=== PATIENT | male | born 1950 | race Caucasian/White ===

== ENCOUNTER → 2019-02-14 09:08 | Outpatient (CLI) | payer MEDICARE, BC, SELFPAY ==
--- NOTE | 2019-02-14 09:14 | US_ITS ---
STUDY: SCROTUM ULTRASOUND REASON FOR EXAM: Male, 68 years old. Palpable mass. TECHNIQUE: Ultrasound evaluation of the scrotum was performed with color Doppler and static mai-scale imaging. COMPARISON: None. FINDINGS: RIGHT TESTICLE INTRATESTICULAR: There is a normal size of the right testicle. The right testicle measures 3.6 x 2.7 x 2.5 cm. There is a homogenous echotexture. There is normal arterial and normal venous vascularity. There is no demonstrated right testicular mass or cyst. EXTRATESTICULAR: The epididymis is normal in size. The epididymis head measures 1.2 cm. There is normal vascularity of the epididymis. There is no demonstrated epididymal cystic structure. There is a large hydrocele. There is no demonstrated varicocele. There is no demonstrated extratesticular mass or cyst. LEFT TESTICLE INTRATESTICULAR: There is a normal size of the left testicle. The left testicle measures 4.0 x 2.8 x 2.6 cm. There is a homogenous echotexture. There is normal arterial and normal venous vascularity. There is no demonstrated left testicular mass or cyst. EXTRATESTICULAR: The epididymis is normal in size. The epididymis head measures 1.0 cm. There is normal vascularity of the epididymis. There is no demonstrated epididymal cystic structure. There is a small hydrocele. There is no demonstrated varicocele. There is no demonstrated extratesticular mass or cyst. US/Testicular with Arterial Flow IMPRESSION: There is no intratesticular mass. There is normal blood flow. Right larger than left hydroceles. Electronically Signed: Ashok Mehta MD at 17:08 EDT , Service support ,
== END ==
DX: N50.9 Disorder of male genital organs, unspecified (principal); N43.3 Hydrocele, unspecified; N50.82 Scrotal pain
CPT/HCPCS: 76870; 93976

== ENCOUNTER → 2020-12-03 08:10 | Outpatient (CLI) | payer MEDICARE, BC, SELFPAY ==
[2020-12-03 10:31] LABS: Vitamin D,25 Hydroxy 41.6 ng/mL
[2020-12-03 10:44] LABS: Anion Gap 6 (5-15); BUN 13 mg/dL (7-18); BUN/Creat Ratio 13.9 RATIO (10-20); Calcium,Total 8.8 mg/dL (8.5-10.1); Chloride 108 mmol/L (98-107); Cholesterol 154 mg/dL (200); Creatinine, Serum 0.93 mg/dL (0.70-1.30); EST Glomerular Filtration Rate 86 mL/min (>60); Est Glom Filt Rate - Afr Amer 104 mL/min (>60); Glucose 92 mg/dL (74-106); High Density Lipoprotein 33 mg/dL; Potassium 3.9 mmol/L (3.5-5.1); Sodium Level 139 mmol/L (136-145); Triglycerides 91 mg/dL; Very Low Density Lipoprotein 18 mg/dL (5-40)
== END ==
LOC: MFPLAB 08:12
PROVIDERS: PCP Family Medicine; Referring Provider Family Medicine; Visit Provider Family Medicine
DX: Z00.00 Encounter for general adult medical examination without abnormal findings (principal); Z12.5 Encounter for screening for malignant neoplasm of prostate
CPT/HCPCS: 36415; 80048; 80061; 82306; 84153; G0103

== ENCOUNTER → 2020-12-19 12:05 | Outpatient (CLI) | payer MEDICARE, BC, SELFPAY ==
--- NOTE | 2020-12-19 12:23 | EKG12_ITS ---
Test Reason : PREOP Blood Pressure : / mmHG Vent. Rate : 055 BPM Atrial Rate : 055 BPM P-R Int : 206 ms QRS Dur : 086 ms QT Int : 402 ms P-R-T Axes : 024 -47 045 degrees QTc Int : 384 ms Sinus bradycardia Left anterior fascicular block Poor R wave progression Abnormal ECG Confirmed by HU GALLEGOS, FELIPE ([id number]), food editor GINA LOYA ([id number]) on 12/20/2020 10:41:08 AM Referred By: Manjinder Conley Confirmed By:FELIPE LUI MD
[2020-12-19 12:35] LABS: Hematocrit 46.6 % (40-54); Hemoglobin 15.8 g/dL (13.0-16.5); Mean Corp Hgb Conc 33.9 g/dL (32-36); Mean Corpuscular Hgb 30.4 pg (27.0-32.0); Mean Corpuscular Volume 89.6 fL (80-94); Mean Platelet Vol. 8.9 fl (6.2-12.0); Platelet Count 215 K/mm3 (150-450); RBC Distribution Width CV 12.6 % (11.6-14.6); RBC Distribution Width SD 41.3 fl (35.1-43.9); White Blood Count 5.4 K/mm3 (4.4-11.0)
[2020-12-19 12:57] LABS: Anion Gap 8 (5-15); BUN 12 mg/dL (7-18); BUN/Creat Ratio 13.1 RATIO (10-20); Calcium,Total 9.2 mg/dL (8.5-10.1); Chloride 107 mmol/L (98-107); Creatinine, Serum 0.92 mg/dL (0.70-1.30); EST Glomerular Filtration Rate 87 mL/min (>60); Est Glom Filt Rate - Afr Amer 106 mL/min (>60); Glucose 107 mg/dL (74-106); Sodium Level 141 mmol/L (136-145)
== END ==
PROVIDERS: PCP Family Medicine; Referring Provider Urology; Visit Provider Urology
DX: Z01.812 Encounter for preprocedural laboratory examination (principal); Z01.810 Encounter for preprocedural cardiovascular examination
CPT/HCPCS: 36415; 80048; 85027; 93005

== ENCOUNTER → 2021-12-23 | Outpatient (CLI) | payer MEDICARE, BC, SELFPAY ==
[2021-12-23 10:06] LABS: Anion Gap 4 (5-15); BUN 15 mg/dL (7-18); BUN/Creat Ratio 14.9 RATIO (10-20); Calcium,Total 9.3 mg/dL (8.5-10.1); Chloride 107 mmol/L (98-107); Creatinine, Serum 1.01 mg/dL (0.70-1.30); EST Glomerular Filtration Rate 78 mL/min (>60); Est Glom Filt Rate - Afr Amer 94 mL/min (>60); Glucose 102 mg/dL (74-106); Potassium 4.6 mmol/L (3.5-5.1); Sodium Level 141 mmol/L (136-145)
== END | disposition home or self-care (01) ==
LOC: MFPLAB 08:07
PROVIDERS: PCP Family Medicine; Visit Provider Family Medicine
DX: Z00.00 Encounter for general adult medical examination without abnormal findings (principal)
CPT/HCPCS: 36415; 80048

== ENCOUNTER → 2022-12-31 | Outpatient (CLI) | payer MEDICARE, BC, SELFPAY ==
[2022-12-31 10:45] LABS: Anion Gap 4 (5-15); BUN 15 mg/dL (7-18); BUN/Creat Ratio 14.4 RATIO (10-20); Calcium,Total 9.3 mg/dL (8.5-10.1); Chloride 108 mmol/L (98-107); Cholesterol 184 mg/dL (200); Creatinine, Serum 1.04 mg/dL (0.70-1.30); EST Glomerular Filtration Rate 75 mL/min (>60); Est Glom Filt Rate - Afr Amer 91 mL/min (>60); Glucose 96 mg/dL (74-106); High Density Lipoprotein 34 mg/dL; PSA,Total - Annual Screen 0.87 ng/mL (0.00-4.00); Potassium 4.2 mmol/L (3.5-5.1); Sodium Level 139 mmol/L (136-145); Triglycerides 114 mg/dL; Very Low Density Lipoprotein 23 mg/dL (5-40)
== END | disposition home or self-care (01) ==
LOC: MFPLAB 08:24
PROVIDERS: PCP Family Medicine; Visit Provider Family Medicine
DX: Z00.00 Encounter for general adult medical examination without abnormal findings (principal); Z12.5 Encounter for screening for malignant neoplasm of prostate
CPT/HCPCS: 36415; 80048; 80061; 84153; G0103

== ENCOUNTER 2023-03-18 06:06 | Day surgery (SDC) | payer MEDICARE, BC, SELFPAY ==
[2023-03-18 06:28] VITALS: BP 135/77; PULSE 74; RESP 20; TEMP 36.2; O2SAT 99; BMI 29.9
[2023-03-18] MEDS: Lactated Ringers 1,000 ML 15 ML IV (06:32)
--- NOTE | 2023-03-18 07:30 | COLBX_PTH ---
PATIENT: KALE SHELDON LOC: EN U#:[id number] AGE/SX: 72/M ROOM: RE03/18/[address]: Dr. Marcus Watters MD : 1950 BED: DIS: 03/18/2023 SPEC #: [id number] RECD: 03/18/23 11:34 STATUS: EDMOND RIO #: [id number] SOLOMON: 03/18/23 07:[address]: Marcus Watters DEPT: SURGICAL PATHOLOGY RECD BY: Sandrine Acharya ENTERED: 03/18/23 12:08 SP TYPE: COLON BX OTHR DR: Dr. Medhat Julian MD Tissues: A - COLON BIOPSY B - Cecum, NOS C - Sigmoid colon biopsy Procedures: Surgery Specimen Level IV HEADER OPERATION: Colonoscopy - open access PRE-OP DIAGNOSIS: Screening TISSUE SUBMITTED: A - Appendiceal orifice polyp biopsy, B - Cecal polyp biopsy, C - Sigmoid polyp biopsy MICROSCOPIC DIAGNOSIS A. Appendiceal orifice polyp, biopsy: Tubular adenoma. B. Cecal polyp, biopsy: Tubular adenoma. C. Sigmoid polyp, biopsy: Hyperplastic polyp. HONORIO:curt 03/19/2023 MICROSCOPIC DESCRIPTION Slides are reviewed. GROSS DESCRIPTION A - Received in fixative is one container labeled with the patient's name and designated appendiceal orifice polyp biopsy. The specimen consists of multiple irregular fragments of light acosta soft tissue that in aggregate measure 1.0 x 0.3 x 0.1 cm. The specimen is totally submitted in one cassette. B - Received in fixative is one container labeled with the patient's name and designated cecal polyp biopsy. The specimen consists of one irregular fragment of light acosta soft tissue that measures 0.3 x 0.3 x 0.1 cm. The specimen is totally submitted in one cassette. C - Received in fixative is one container labeled with the patient's name and designated sigmoid polyp biopsy. The specimen consists of one irregular fragment of light acosta soft tissue that measures 0.3 x 0.3 x 0.1 cm. The specimen is totally submitted in one cassette. / HONORIO:curt 03/18/2023 TC:1 CPT: 79223 x3
--- NOTE | 2023-03-18 07:31 | HP.PCM_ITS ---
[facility] - General General Date of Service: 03/18/23 Chief Complaint: Screening colonoscopy HPI Narrative KALE SHELDON, is a 72 M who presents for screening colonoscopy. He confirms his preappointment questionnaire that he has not had a prior colonoscopy but also not experienced any change in his bowel habits-and particularly denies any notice of blood. He states that it has taken him a while to get to this point because he never understood why you should look for trouble, but states that ultimately was convinced by his primary care provider. He also denies any family history of GI illness to include diverticulitis, inflammatory bowel disease, or colon cancer. Lastly he confirms that her prep was completed successfully and that her output is now predominantly clear with only mild sediment. [facility] Medical History (Updated 03/16/23 @ 15:44 by Yennifer Hart) Non-smoker Wears glasses Home Medications multivitamin (Daily Multi-Vitamin tablet) 1 tab PO DAILY 03/16/23 [History Last Taken 03/15/23] Allergy/AdvReac Type Severity Reaction Status Date / Time Bandaids AdvReac Skin Uncoded 02/18/23 09:12 irritation Family History (Updated 02/18/23 @ 09:10 by Barbara Chavez) Brother Cancer Sister Breast cancer Surgical History Hx of vasectomy Social History (Updated 02/18/23 @ 09:11 by Barbara Chavez) household members: spouse current occupational status: retired Smoking Status: Never smoker alcohol intake: never Past Medical/Surgical History Planned Operation Planned Operative Procedure/s: CSCOPE Previous Hospitalizations/Surgeries HX Hospitalizations: No Any Problems With Anesthesia: No You/Your Family Experience Fever (Hyperthermia) With Anes: No Cholinesterase deficiency: No Cardiovascular Hx Hypertension: No Respiratory Hx Sleep Apnea: No Hx Respiratory Tract Infection/Cold (presently): No Do You Snore Loudly (louder than talking or can be heard): Yes Do You Often Feel Tired/ Fatigued/ Sleepy Dring Daytime?: No Has Anyone Observed You Stop Breathing During Sleep?: No Result (for STOP score): Negative Smoking Status: Never smoker Neurological Does patient have nerve stimulator: No Miscellaneous Recent Exposure to Contagious Disease: No Allergies Bandaids Adverse Reaction (Uncoded 02/18/23 09:12) Skin irritation Discharge Is Pt Admitted From a Skilled Nursing, or a Long-Term: No After D/C, Where Do you Plan to Go: Return Home Vital Signs Vital Signs Vital Signs: 03/18/23 06:27 03/18/23 06:28 Temperature 97.2 F L Temperature Source Temporal Pulse Rate 74 Respiratory Rate 20 H Respiratory Pattern Normal Blood Pressure 135/77 H Blood Pressure Mean 96 Blood Pressure Source Monitor Blood Pressure Position Semi-Fowlers Blood Pressure Location Left Arm Pulse Ox 99 Oxygen Delivery Method Room Air Weight Weight: 209 lb Body Mass Index (BMI) 29.9 Physical Exam Const alert, oriented x3 and no apparent distress General Appearance: cooperative and comfortable Resp normal respiratory effort GI GI Narrative: Overweight, hirsute, no scars, nondistended, soft, nontender to palpation x 4 quadrants Assessment & Plan Assessment/Plan (1) Encounter for screening for malignant neoplasm of colon: PLAN: This is a 72-year-old male who presents for screening colonoscopy and appears to be at average risk for colon cancer per his history (he does note that there are number of cancers in first-degree relatives including pancreas, breast, melanoma??). There is no prior history of colonoscopy for Mr. Sheldon. He confirms that he completed a prep in anticipation of today's procedure. He recently accompanied his to her first colonoscopy as well and therefore they do not have many questions. I did cover with him the expected lead for any biopsy/ pathology results. Will proceed to the endoscopy suite for planned open access screening colonoscopy as scheduled. PLAN: Plan Proceed for open access screening colonoscopy Surgery Risks - Colonoscopy Risks Include but are not Limited To: Risks include but are not limited to: Bleeding, perforation requiring further surgery, inability to complete colonoscopy requiring barium enema.
[2023-03-18 08:26] VITALS: BP 135/77; BP 94/55; PULSE 70; RESP 18; TEMP 36.2; O2SAT 94
--- NOTE | 2023-03-18 08:28 | OP.COLON_ITS ---
Patient Name: Vladimir Forman Procedure Date: 03/18/2023 7:12 AM Date of : 1950 Age: 72 Procedure: Colonoscopy Indications: Screening for colorectal malignant neoplasm Providers: Marcus Watters MD Referring MD: Medhat Julian MD Medicines: See the Anesthesia note for documentation of the administered medications Patient Profile: Last Colonoscopy: none. The patient's first colonoscopy is today. Complications: No immediate complications. Estimated blood loss: Minimal. Procedure: Pre-Anesthesia Assessment: - The heart rate, respiratory rate, oxygen saturations, blood pressure, adequacy of pulmonary ventilation, and response to care were monitored throughout the procedure. After I obtained informed consent, the scope was passed under direct vision. Throughout the procedure, the patient's blood pressure, pulse, and oxygen saturations were monitored continuously. The Colonoscope was introduced through the anus and advanced to the cecum, identified by its appearance. The colonoscopy was performed without difficulty. The patient tolerated the procedure well. The quality of the bowel preparation was adequate to identify polyps 6 mm and larger in size. Scope In: 7:42:59 AM Scope Withdrawal Time 0 hours 30 minutes 47 seconds Scope Out: 8:19:01 AM Total Procedure Duration Time 0 hours 36 minutes 2 seconds Findings: Three semi-sessile polyps were found in the distal sigmoid colon, cecum and appendiceal orifice. The polyps were 3 to 5 mm in size. These polyps were removed with a piecemeal technique using a cold biopsy forceps. Resection and retrieval were complete. Estimated blood loss was minimal. Many small and large-mouthed diverticula were found in the sigmoid colon. No biopsies or other specimens were collected for this exam. The exam was otherwise without abnormality on direct and retroflexion views. Impression: - Three 3 to 5 mm polyps in the distal sigmoid colon, in the cecum and at the appendiceal orifice, removed piecemeal using a cold biopsy forceps. Resected and retrieved. - Diverticulosis in the sigmoid colon. No specimens collected. - The examination was otherwise normal on direct and retroflexion views. Recommendation: - Discharge patient to home (via wheelchair). - High fiber diet today. - Continue present medications. - Await pathology results. - Repeat colonoscopy date to be determined after pending pathology results are reviewed for surveillance based on pathology results. - Telephone my office for pathology results in 1 week. Procedure Code(s): --- Professional --- 92214, Colonoscopy, flexible; with biopsy, single or multiple Diagnosis Code(s): --- Professional --- Z12.11, Encounter for screening for malignant neoplasm of colon D12.5, Benign neoplasm of sigmoid colon D12.0, Benign neoplasm of cecum D12.1, Benign neoplasm of appendix K57.30, Diverticulosis of large intestine without perforation or abscess without bleeding CPT copyright 2017 [employer] [place] [employer]. All rights reserved. The codes documented in this report are preliminary and upon transformer stock clerk review may be revised to meet current compliance requirements. Marucs Watters MD 03/18/2023 8:27:59 AM This report has been signed electronically. Number of Addenda: 0 Note Initiated On: 03/18/2023 7:12 AM
--- NOTE | 2023-03-18 08:29 | OP.CCLET_ITS ---
03/18/2023 Medhat Julian MD [address] [phone] Re : Colonoscopy procedure for Vladimir [place] Dear Dr. Julian This procedure was performed on March. My impressions and recommendations are as follows: Impressions : - Three 3 to 5 mm polyps in the distal sigmoid colon, in the cecum and at the appendiceal orifice, removed piecemeal using a cold biopsy forceps. Resected and retrieved. - Diverticulosis in the sigmoid colon. No specimens collected. - The examination was otherwise normal on direct and retroflexion views. Recommendations : - Discharge patient to home (via wheelchair). - High fiber diet today. - Continue present medications. - Await pathology results. - Repeat colonoscopy date to be determined after pending pathology results are reviewed for surveillance based on pathology results. - Telephone my office for pathology results in 1 week. My findings are described in the full procedure note, which is enclosed. If I can be of further assistance, please feel free to contact me at Doctor phone number(s): , Work: . Sincerely, Marcus Watters MD 03/18/2023 8:27:59 AM This report has been signed electronically.
[2023-03-18 08:31] VITALS: BP 101/71; BP 135/77; PULSE 62; RESP 18; O2SAT 94
[2023-03-18 08:36] VITALS: BP 107/73; BP 135/77; PULSE 60; RESP 16; O2SAT 95
[2023-03-18 08:41] VITALS: BP 108/70; BP 135/77; PULSE 54; RESP 18; TEMP 36.1; O2SAT 96
[2023-03-18 08:55] VITALS: BP 135/77
== END 2023-03-18 09:05 | disposition home or self-care (01) ==
LOC: EN 06:09 → AC 06:11
PROVIDERS: PCP Family Medicine; Referring Provider Family Medicine; Visit Provider Surgery
PROC: 0DJD8ZZ Inspection of Lower Intestinal Tract, Via Natural or Artificial Opening Endoscopic (ICD-10-PCS; CPT 45378; principal; 2023-03-18 07:25)
DX: Z12.11 Encounter for screening for malignant neoplasm of colon (principal); D12.0 Benign neoplasm of cecum; D12.1 Benign neoplasm of appendix; D12.5 Benign neoplasm of sigmoid colon; K57.30 Diverticulosis of large intestine without perforation or abscess without bleeding; E66.3 Overweight; Z68.30 Body mass index [BMI] 30.0-30.9, adult
CPT/HCPCS: 45380; 88305; J7120; J2405

== ENCOUNTER → 2023-10-01 | Outpatient (CLI) | payer MEDICARE, SELFPAY ==
--- NOTE | 2023-10-01 11:25 | US_ITS ---
INDICATION: LT TESTICLE LUMP/MASS EXAMINATION: Ultrasound US Scrotum (Contents) TECHNIQUE: Realtime ultrasound of the testicles was performed with grayscale, Color Doppler and spectral Doppler analysis. COMPARISON: Prior study dated: 02/14/2019 FINDINGS: RIGHT: TESTIS: The right testicle measures 2.5 x 3 x 2.2 cm. Normal in size and echotexture, without focal lesion. COLOR DOPPLER: Normal arterial flow present in the testicle with monophasic waveforms. EPIDIDYMIS: The right epididymal head measures about 1.1 cm. There is a 6 mm cyst in the right epididymal head. [Normal color Doppler flow pattern in the epididymis. HYDROCELE: None. VARICOCELE: None. LEFT: TESTIS: The left testicle measures 3.8 x 3 x 2.5 cm. Normal in size and echotexture, without focal lesion. COLOR DOPPLER: Normal arterial flow present in the testicle with monophasic waveforms. EPIDIDYMIS: The left epididymal head measures about 1.1 cm. There is a complex multiseptated cystic lesion in the body of the left epididymis measuring about 1.4 x 1.3 x 1 cm could represent spermatocele corresponding to the palpable abnormality. [Normal color Doppler flow pattern in the epididymis. HYDROCELE: There is moderate left hydrocele. VARICOCELE: None. US/Testicular with Arterial Flow IMPRESSION: 1. Multiseptated complex cystic lesion in the left epididymis as described above could represent spermatocele. Follow-up exam is recommended. 2. Moderate left hydrocele. 3. Otherwise unremarkable testicles. Electronically Signed: Ruddy Gomes MD at 12:46 EST ,
--- NOTE | 2023-10-01 11:44 | CDU_ITS ---
Reason For Study: Near Syncope Rt. Velocities/BP Lt. Velocities/BP Prox CCA 48.7/16.6 cm/sec. Prox CCA 86.1/21.2 cm/sec. Mid CCA 90.3/27.0 cm/sec. Mid CCA 147.7/49.0 cm/sec. Dist CCA 80.9/24.2 cm/sec. Dist CCA 117.0/38.0 cm/sec. Prox ICA 101.6/21.2 cm/sec. Prox ICA 171.9/35.8 cm/sec. Mid ICA 68.8/25.9 cm/sec. Mid ICA 78.7/27.0 cm/sec. Dist ICA 41.3/18.2 cm/sec. Dist ICA 57.2/24.2 cm/sec. Rt. ICA/CCA = 1.1. Lt. ICA/CCA = 1.2. Prox ECA 102.9/22.6 cm/sec. Prox ECA 150.6/18.9 cm/sec. Rt. Vert. 45.0/16.6 cm/sec. Lt. Vert. 43.2/14.6 cm/sec. Right Extracranial There is heterogeneous, irregular atherosclerotic plaque noted in the right common carotid artery. There is intimal thickening but no significant atherosclerotic plaque noted in the right internal carotid artery. There is intimal thickening but no significant atherosclerotic plaque noted in the right external carotid artery. Antegrade flow is noted in the right vertebral artery. Left Extracranial There is heterogeneous, smooth atherosclerotic plaque noted in the left common carotid artery. There is heterogeneous, irregular atherosclerotic plaque noted in the left internal carotid artery. There is intimal thickening but no significant atherosclerotic plaque noted in the left external carotid artery. Antegrade flow is noted in the left vertebral artery. Procedure Carotid Duplex 44242. This is a Carotid Duplex examination using B-mode, color flow and specral Doppler. The exam was diagnostic. Exam performed in department. VL/Carotid Duplex Ultrasound Interpretation Summary Mild (<50%) stenosis right extracranial internal carotid. Moderate (50-69%) stenosis left extracranial internal carotid. Patent and antegrade vertebrals bilaterally. Ordering Physician: Medhat Julian Referring Physician: Medhat Julian Performed By: Quintin Andersen RVT
== END | disposition home or self-care (01) ==
PROVIDERS: PCP Family Medicine; Referring Provider Family Medicine; Visit Provider Family Medicine
DX: R55 Syncope and collapse (principal); Q55.29 Other congenital malformations of testis and scrotum; N50.9 Disorder of male genital organs, unspecified; N43.3 Hydrocele, unspecified; N50.3 Cyst of epididymis
CPT/HCPCS: 76870; 93880; 93976

== ENCOUNTER → 2023-11-29 | Outpatient (CLI) | payer MEDICARE, OTHER, SELFPAY ==
--- NOTE | 2023-11-29 13:21 | MRI_ITS ---
STUDY: MRI BRAIN WITH AND WITHOUT CONTRAST (ATTENTION INTERNAL AUDITORY CANALS - I.A.C.''s) REASON FOR EXAM: Male, 73 years old. Right tinnitus TECHNIQUE: Standardized multiplanar fat and water weighted pulse sequences were obtained. ml of 20ml clariscan contrast material was administered intravenously for the contrast portion of the examination. COMPARISON: None. FINDINGS: Internal auditory canal findings: Normal bilateral temporal bones. Normal bilateral internal auditory canals. There is no demonstrated intracanalicular or cisternal vestibular schwannoma (acoustic neuroma). There is no enhancement of the bilateral VIIth or VIIIth cranial nerves. Normal bilateral cochlea, vestibules and semicircular canals. No mastoid air cell opacification is present. No cerebellar pontine angle mass or cyst is seen. There is no demonstrated lesions of the cavernous sinus. No nodularity or abnormal enhancement is seen in the 7th or 8th cranial nerves within IACs. No demonstrated Mondini''s malformation. BRAIN FINDINGS: There is mild cerebral atrophy with widening of the extra-axial spaces and ventricular dilatation. There are a limited number of small white matter hyperintensities, distributed throughout the deep white matter tracts of the cerebral hemispheres, consistent with mild chronic white matter ischemic changes. There is no evidence for recent intracranial ischemia or other cause of cytotoxic edema on diffusion weighted imaging (DWI). There are no demyelinating plagues of the supratentorial brain, brainstem or cerebellum. There are no findings suspicious for multiple sclerosis (MS). Normal bilateral frontal poles, and orbital frontal and gyrus recti of the frontal lobes. Normal bilateral temporal tips of the temporal lobes. There are no white matter shear injuries (diffuse axonal injuries). There are no parenchymal hemorrhages or hematomas. There are no findings to suggest prior closed head parenchymal injury of the brain. No hydrocephalus or midline shift is present. There are no visualized ring-enhancing lesions of the brain parenchyma or abnormal thickening or enhancement of the meninges or dura. Normal bilateral basal ganglia. Normal thalami. Normal flow voids within the major intracranial circulation suggesting patency by spin echo criteria. Normal venous enhancement. There is no enhancing intra-axial or extra-axial abnormality. There is no extra-axial fluid accumulation. Normal sella turcica, pituitary gland, infundibular stalk, optic chiasm and hypothalamus. Normal tectal plate and pineal gland. Normal midbrain, ashley and medulla. Normal cerebellum. Normal basal cisterns. No demonstrated orbital abnormality, within the constraints of a routine brain study. Normal visualized paranasal sinuses. Normal calvarium and skull base. Normal visualized soft tissue structures. Normal visualized upper cervical spine. MRI/Brain W/WO Contrast IMPRESSION: 1. Normal unenhanced and enhanced MRI of the bilateral internal auditory canals (I.A.C''s). 2. Involutional and chronic ischemic changes of the brain, as described above. Electronically Signed: Ney Dubon MD at 15:33 EDT ,
--- NOTE | 2023-11-29 13:21 | RAD_ITS ---
STUDY: X-RAY - ORBITS REASON FOR EXAM: Male, 73 years old. MRI CLEARANCE TECHNIQUE: 2 view(s) of the orbits were obtained. COMPARISON: None. FINDINGS: Normal bilateral orbits without a metallic orbital foreign body. Normal visualized facial bones. Normal paranasal sinuses. The soft tissue structures are unremarkable. RAD/Orbits for Foreign Body IMPRESSION: No demonstrated metallic orbital foreign body. The patient is cleared for an MRI examination. Electronically Signed: Carlton Levine MD at 13:53 EDT ,
[2023-11-29 14:18] LABS: CREATININE FINGERSTICK < 1.0 mg/dL (0.70-1.30); EGFR FINGERSTICK > 60.0000 mL/min (>60)
== END | disposition home or self-care (01) ==
PROVIDERS: PCP Family Medicine; Referring Provider Otolaryngology; Visit Provider Otolaryngology
DX: H93.11 Tinnitus, right ear (principal)
CPT/HCPCS: 70030; 70553; A9575

== ENCOUNTER → 2024-01-05 | Outpatient (CLI) | payer MEDICARE, OTHER, SELFPAY ==
[2024-01-05 10:51] LABS: Anion Gap 4 (5-15); BUN 12 mg/dL (7-18); BUN/Creat Ratio 12.3 RATIO (10-20); Calcium,Total 9.2 mg/dL (8.5-10.1); Chloride 108 mmol/L (98-107); Cholesterol 94 mg/dL (200); Creatinine, Serum 0.97 mg/dL (0.70-1.30); EST Glomerular Filtration Rate 81 mL/min (>60); Est Glom Filt Rate - Afr Amer 98 mL/min (>60); Glucose 103 mg/dL (74-106); High Density Lipoprotein 39 mg/dL; PSA,Total- Diagnostic 1.01 ng/mL (0.0-4.0); Potassium 4.2 mmol/L (3.5-5.1); Sodium Level 138 mmol/L (136-145); Triglycerides 106 mg/dL; Very Low Density Lipoprotein 21 mg/dL (5-40)
== END | disposition home or self-care (01) ==
LOC: MFPLAB 08:15
PROVIDERS: PCP Family Medicine; Visit Provider Family Medicine
DX: Z00.00 Encounter for general adult medical examination without abnormal findings (principal)
CPT/HCPCS: 36415; 80048; 80061; 84153

== ENCOUNTER → 2024-10-02 | Outpatient (CLI) | payer MEDICARE, OTHER, SELFPAY ==
--- NOTE | 2024-10-02 08:54 | CDU_ITS ---
Reason For Study Reason For Study: Stenosis Rt. Velocities/BP Lt. Velocities/BP Prox CCA 86.3/22 cm/sec. Prox CCA 81.5/24.8 cm/sec. Mid CCA 94.8/24.8 cm/sec. Mid CCA 89.1/27.7 cm/sec. Dist CCA 81.5/21.1 cm/sec. Dist CCA 187.4/63 cm/sec. Prox ICA 68.3/17.3 cm/sec. Prox ICA 152.1/49 cm/sec. Mid ICA 67.4/24.8 cm/sec. Mid ICA 99.4/40.2 cm/sec. Dist ICA 68.3/26.7 cm/sec. Dist ICA 63/28.6 cm/sec. Rt. ICA/CCA = 0.72. Lt. ICA/CCA = 1.70. Prox ECA 119.3/26.1 cm/sec. Prox ECA 115.6/26.1 cm/sec. Rt. Vert. 63.6/20.1 cm/sec. Lt. Vert. 48.3/18.8 cm/sec. Right Extracranial There is heterogeneous, irregular atherosclerotic plaque noted in the right common carotid artery. There is intimal thickening but no significant atherosclerotic plaque noted in the right internal carotid artery. There is intimal thickening but no significant atherosclerotic plaque noted in the right external carotid artery. Antegrade flow is noted in the right vertebral artery. Left Extracranial There is heterogeneous, irregular atherosclerotic plaque noted in the left common carotid artery. There is heterogeneous, irregular atherosclerotic plaque noted in the left internal carotid artery. There is intimal thickening but no significant atherosclerotic plaque noted in the left external carotid artery. Antegrade flow is noted in the left vertebral artery. Procedure Carotid Duplex [id number]. This is a Carotid Duplex examination using B-mode, color flow and specral Doppler. Exam performed in department. VL/Carotid Duplex Ultrasound Interpretation Summary Normal right extracranial internal carotid. Moderate (50-69%) stenosis left extracranial internal carotid. Patent and antegrade vertebrals bilaterally. Ordering Physician: Julianna Casarez Referring Physician: Medhat Julian Performed By: Lorrie Azevedo RVT
== END | disposition home or self-care (01) ==
LOC: CVS 08:41
PROVIDERS: PCP Family Medicine; Referring Provider Physician Assistant; Visit Provider Physician Assistant
DX: I65.22 Occlusion and stenosis of left carotid artery (principal)
CPT/HCPCS: 93880

== ENCOUNTER → 2025-01-04 | Outpatient (CLI) | payer MEDICARE, OTHER, SELFPAY ==
[2025-01-04 13:47] LABS: Anion Gap 10 (5-15); BUN 14 mg/dL (4-19); BUN/Creat Ratio 14.8 RATIO (10-20); Calcium,Total 9.4 mg/dL (7.6-11.0); Carbon Dioxide 24.3 mmol/L (21.0-32.0); Chloride 105 mmol/L (98-108); Cholesterol 97 mg/dL (<=200); Creatinine, Serum 0.94 mg/dL (0.70-1.20); EST Glomerular Filtration Rate 86 (>60); Glucose 103 mg/dL (70-99); High Density Lipoprotein 37 mg/dL; Low Density Lipoprotein Calc. 44 mg/dL; PSA,Total - Annual Screen 0.85 ng/mL (0.02-4.00); Potassium 4.6 mmol/L (3.3-5.1); Sodium Level 140 mmol/L (133-145); Triglycerides 81 mg/dL; Very Low Density Lipoprotein 16 mg/dL (5-40); cholesterol:hdl ratio screen 2.62
== END | disposition home or self-care (01) ==
LOC: MFPLAB 09:40
PROVIDERS: PCP Family Medicine; Referring Provider Family Medicine; Visit Provider Family Medicine
DX: Z00.00 Encounter for general adult medical examination without abnormal findings (principal); Z12.5 Encounter for screening for malignant neoplasm of prostate
CPT/HCPCS: 36415; 80048; 80061; 84153; G0103